=== PATIENT | female | born 1960 | race Caucasian/White ===

== ENCOUNTER → 2021-02-08 | Outpatient (CLI) | payer OTHER ==
[~2021-02-08] MED LIST: CENTRUM SILVER1 EAC4 PO; DICLOFENAC SODI75 MG PO; DIGESTIVE ADVA PO; EFFEXOR XR75 MG PO; HYDROCODON-ACE1 EAC2 PO; LISINOPRIL40 MG PO; NORVASC5 MG PO; STOOL SOFTENER100 MG PO
[2021-02-08 13:07] LABS: HEMOGLOBIN 13.5 gm/dl (12.3-15.3); RED BLOOD COUNT 4.36 M/UL (4.00-5.10); WHITE BLOOD COUNT 8.9 K/UL (4.5-11.0)
[2021-02-08 13:29] LABS: BUN/CREATININE RATIO 40 (0-10)
== END ==
LOC: OPSV2 11:14 → EDSTATUS 12:30
PROVIDERS: Orthopaedic Surgery
DX: Z01.818 Encounter for other preprocedural examination (principal); M16.12 Unilateral primary osteoarthritis, left hip; I51.7 Cardiomegaly
CPT/HCPCS: 71046; 80048; 85025; 93005

== ENCOUNTER → 2021-02-20 | Outpatient (CLI) | payer OTHER ==
[~2021-02-20] MED LIST changes: +ASPIRIN EC81 MG PO; +CYCLOBENZAPRINE10 MG PO; +OXYCODONE HCL10 MG PO; +TIZANIDINE HCL6 MG PO; +ZOFRAN 4 MG TAB4 MG PO
[2021-02-20 11:40] LABS: BUN/CREATININE RATIO 36 (0-10)
== END ==
LOC: LAB 10:43
PROVIDERS: Orthopaedic Surgery
DX: Z01.812 Encounter for preprocedural laboratory examination (principal)
CPT/HCPCS: 36415; 80048; 86850; 86900; 86901

== ENCOUNTER 2021-02-21 08:45 | Day surgery (SDC) | payer OTHER ==
[~2021-02-21] VITALS: Ht 175.3 cm; Wt 90.3 kg
[~2021-02-21 08:45] MED LIST changes: -ASPIRIN EC81 MG PO; -CYCLOBENZAPRINE10 MG PO; -OXYCODONE HCL10 MG PO; -TIZANIDINE HCL6 MG PO; -ZOFRAN 4 MG TAB4 MG PO
[2021-02-21] MEDS ORDERED: CYCLOBENZAPRINE10 MG PO (12:21)
[2021-02-21] MEDS ORDERED: OXYCODONE HCL10 MG PO (12:21)
[2021-02-21] MEDS ORDERED: ASPIRIN EC81 MG PO (12:21)
[2021-02-21] MEDS ORDERED: ZOFRAN 4 MG TAB4 MG PO (12:21)
[2021-02-21] MEDS ORDERED: TIZANIDINE HCL6 MG PO (17:07)
[2021-02-22 07:09] LABS: HEMOGLOBIN 9.5 gm/dl (12.3-15.3); RED BLOOD COUNT 3.11 M/UL (4.00-5.10); WHITE BLOOD COUNT 12.7 K/UL (4.5-11.0)
[2021-02-22 07:19] LABS: BUN/CREATININE RATIO 44 (0-10)
== END 2021-02-22 10:30 | disposition home or self-care (01) ==
LOC: OR 08:45 → M/S 08:45 → OR 10:45 → EDSTATUS 10:45 → M/S 15:14 → OR 02-22 10:30
PROVIDERS: Orthopaedic Surgery
DX: M16.12 Unilateral primary osteoarthritis, left hip (principal); M76.9 Unspecified enthesopathy, lower limb, excluding foot; I10 Essential (primary) hypertension; W07.XXXA Fall from chair, initial encounter; Y92.9 Unspecified place or not applicable; Z90.49 Acquired absence of other specified parts of digestive tract; Z20.822 Contact with and (suspected) exposure to COVID-19
CPT/HCPCS: 73501; 73502; 76000; 80048; 85027; 97116-GP-CQ; 97161; 97166; 97535; J0690; J1100; J1885; J2001; J2250; J2370; J2704; J2795; J3010; J3370; J7050; J7120